=== PATIENT | male | born 1995 | race African-American/Black ===

== ENCOUNTER 2019-11-07 15:08 | Emergency (ER) | payer OTHER ==
[2019-11-07] MEDS ORDERED: NS 0.9% 1000 ML** 1,000 ML IV ONE (17:23)
[2019-11-07] MEDS ORDERED: Metoclopramide IV* 5 MG/ML 2 ML VIAL IV ONE (17:23)
--- NOTE | 2019-11-07 17:25 | ED ---
Complex/Multi-Sys Presentation - HPI Summary HPI Summary: This patient is a 23 year old M presenting to [facility] [place] accompanied by male friend with a chief complaint of nausea/vomiting and fever for the past 4 days. Symptoms aggravated by nothing. Symptoms alleviated by nothing. Patient reports he has not been able to keep anything in his stomach. Pt denies diarrhea, neck pain, abdominal pain, sore throat. Pt reports muscle soreness, congestion, and BERMUDEZ. Pt reports he eats cafeteria food and cooks and does not remember any suspicious food intake. - History Of Current Complaint Chief Complaint: EDFluSymptoms Hx Obtained From: Patient Onset/Duration: Lasting Days - 4, Still Present Timing: Constant Aggravating Factor(s): nothing Alleviating Factor(s): nothing Associated Signs And Symptoms: Positive: Headache, Other - denies neck pain, sore throat; reports muscle soreness, congestion. Negative: Diarrhea, Abdominal Pain - Allergies/Home Medications Allergies/Adverse Reactions: Allergies Allergy/AdvReac Type Severity Reaction Status Date / Time shellfish derived Allergy Swelling Verified 11/07/19 15:16 Of Face,Lips,& Throat Home Medications: Home Medications Acetaminophen TAB* [Tylenol TAB*] 650 mg PO Q4H PRN 11/07/19 [History Confirmed 11/07/19] Albuterol HFA INHALER* [Ventolin HFA Inhaler*] 1 puff INH Q4H PRN 11/07/19 [ History Confirmed 11/07/19] Ondansetron ODT TAB* [Zofran 4 MG Odt TAB*] 4 mg PO Q6H PRN 11/07/19 [History Confirmed 11/07/19] PMH/Surg Hx/FS Hx/Imm Hx Endocrine/Hematology History: Denies: Hx Diabetes Respiratory History: Reports: Hx Asthma - Surgical History Surgery Procedure, Year, and Place: none Infectious Disease History: No Infectious Disease History: Denies: Traveled Outside the [place] in Last 30 Days - Family History Known Family History: Positive: Hypertension, Diabetes - Social History Alcohol Use: Occasionally Hx Substance Use: No Substance Use Type: Reports: None Hx Tobacco Use: No Smoking Status (MU): Never Smoked Tobacco Review of Systems Positive: Fever Positive: Other - congestion. Negative: Sore Throat Positive: Vomiting, Nausea. Negative: Abdominal Pain, Diarrhea Positive: Other - denies neck pain; reports muscle soreness Positive: Headache All Other Systems Reviewed And Are Negative: Yes Physical Exam - Summary Physical Exam Summary: VITAL SIGNS: Reviewed. GENERAL: Patient is a well-developed and nourished MALE who is lying comfortable in the stretcher. Patient is not in any acute respiratory distress. HEAD AND FACE: No signs of trauma. No ecchymosis, hematomas or skull depressions. Nasal congestion, Runny nose, Maxillary sinus tenderness EYES: PERRLA, EOMI x 2, No injected conjunctiva, no nystagmus. EARS: Hearing grossly intact. Ear canals and tympanic membranes are within normal limits. MOUTH: Oropharynx within normal limits. NECK: Supple, trachea is midline, no adenopathy, no JVD, no carotid bruit, no c- spine tenderness, neck with full ROM. CHEST: Symmetric, no tenderness at palpation. LUNGS: Clear to auscultation bilaterally. No wheezing or crackles. CVS: Regular rate and rhythm, S1 and S2 present, no murmurs or gallops appreciated. ABDOMEN: Soft, non-tender. No signs of distention. No rebound, no guarding, and no masses palpated. Bowel sounds are normal. EXTREMITIES: FROM in all major joints, no edema, no cyanosis or clubbing. NEURO: Alert and oriented x 3. No acute neurological deficits. Speech is normal and follows commands. SKIN: Dry and warm. Triage Information Reviewed: Yes Vital Signs On Initial Exam: Initial Vitals Temp Pulse Resp BP Pulse Ox 98.9 F 100 16 126/71 96 11/07/19 15:12 11/07/19 15:12 11/07/19 15:12 11/07/19 15:12 11/07/19 15:12 Vital Signs Reviewed: Yes Procedures - Sedation Patient Received Moderate/Deep Sedation with Procedure: No Diagnostics - Vital Signs Vital Signs Temp Pulse Resp BP Pulse Ox 11/07/19 15:12 98.9 F 100 16 126/71 96 - Laboratory Result Diagrams: 11/07/19 17:41 11/07/19 17:41 Lab Statement: Any lab studies that have been ordered have been reviewed, and results considered in the medical decision making process. - Radiology Chest X-Ray Radiology Interpretation Completed By: Radiologist Summary of Radiographic Findings: Per radiologist,. Questionable mild airspace opacification in the right midlung zone. ED physician has reviewed this imaging report. Complex Multi-Symp Course/Dx Assessment/Plan: This patient is a 23 year old M presenting to [facility] accompanied by male friend with a chief complaint of nausea/vomiting and fever for the past 4 days. Symptoms aggravated by nothing. Symptoms alleviated by nothing. Patient reports he has not been able to keep anything in his stomach. Pt denies diarrhea, neck pain, abdominal pain, sore throat. Pt reports muscle soreness, congestion, and BERMUDEZ. Pt reports he eats in cafeteria food and cooks and does not remember any suspicious food intake. In the physical exam the patient doesnt have any neck pain or meningeal signs. Blood work without any significant abnormality except for CRP of 61.0. Urinalysis is negative for UTI , influenza A and B is negative. Chest x-ray impression: Questionable mild airspace opacification in the right middle. Since the patient is experiencing fevers and cough I believe that the patient would benefit from antibiotics since I believe that the patient has pneumonia. In the ED course the patient was given 1 dose of Rocephin and he will be discharged home with a prescription for azithromycin. Patient was discharged home with follow-up with primary care physician. He was recommended to return to the emergency department should he develop any other symptoms. - Diagnoses Provider Diagnoses: Pneumonia Discharge ED - Sign-Out/Discharge Documenting (check all that apply): Patient Departure - discharge - Discharge Plan Condition: Stable Disposition: HOME Prescriptions: Azithromycin TAB* [Zithromax TAB (Z-HAROLDO) 250 mg #6 tabs] 2 tab PO .TODAY, THEN 1 DAILY #1 haroldo Patient Education Materials: Pneumonia (ED) Referrals: [facility] [Primary Care Provider] - - Billing Disposition and Condition Condition: STABLE Disposition: Home - Attestation Statements Document Initiated by Rossyibe: Yes Documenting Scribe: Maritza Mary Provider For Whom Myrna is Documenting (Include Credential): Dr. Jaleel Siddiqi MD Scribe Attestation: Maritza Tam scribed for Dr. Jaleel Siddiqi MD on 11/08/19 at 1901. Scribe Documentation Reviewed: Yes Provider Attestation: The documentation as recorded by the Maritza parrish accurately reflects the service I personally performed and the decisions made by me, Dr. Jaleel Siddiqi MD Status of Scribe Document: Viewed
[2019-11-07 17:48] LABS: ABS Basophils 0.1 10^3/ul (0-0.2); ABS Eosinophils 0.1 10^3/ul (0-0.6); ABS Lymphocytes 1.4 10^3/ul (1.0-4.8); ABS Monocytes 1.3 10^3/ul (0-0.8); ABS Neutrophils 6.1 10^3/ul (1.5-7.7); Eosinophil % 1.6 %; Hematocrit 42 % (42-52); Hemoglobin 14.5 g/dL (14.0-18.0); Lymphocyte % 15.2 %; Mean Corpuscular HGB Conc 34 g/dL (31-36); Mean Corpuscular Hemoglobin 30 pg (27-31); Mean Corpuscular Volume 87 fL (80-94); Mean Platelet Volume 9.5 fL (7.4-10.4); Nucleated Red Blood Cells % 0.1; Platelet Count 210 10^3/uL (150-450); Red Blood Count 4.87 10^6 /uL (4.18-5.48); Red Cell Distribution Width 13 % (10-15)
[2019-11-07 18:06] LABS: Albumin 4.7 g/dL (3.2-5.2); Albumin/Globulin Ratio 1.3 (1-3); BUN/Creatinine Ratio 8.8 (8-20); C Reactive Protein 61.05 mg/L (<8.01); Calcium 9.8 mg/dL (8.6-10.3); EGFR African American 98.1 (>60); EGFR Non-African American 81.1 (>60); Globulin 3.6 g/dL (2-4); Potassium 3.6 mmol/L (3.5-5.0); Total Bilirubin 0.8 mg/dL (0.2-1.0); Total Protein 8.3 g/dL (6.4-8.9)
[2019-11-07 18:22] LABS: Influenza A Molecular NEGATIVE (Negative); Influenza B Molecular NEGATIVE (Negative)
[2019-11-07 18:26] LABS: Urine Appearance Clear; Urine Bilirubin Negative (Negative); Urine Blood 2+ (Negative); Urine Color Yellow; Urine Glucose Negative (Negative); Urine Ketones Negative (Negative); Urine Nitrite Negative (Negative); Urine Protein Negative (Negative); Urine Urobilinogen Negative (Negative)
[2019-11-07 18:28] LABS: Urine Bacteria Absent (Absent); Urine Red Blood Cell 1+(3-5/hpf) (Absent); Urine White Blood Cell Absent (Absent)
[2019-11-07] MEDS ORDERED: cefTRIAXone(*) 1 GM in NS 0.9% 50 ML* 50 ML IVPB ONE (18:36)
[2019-11-07 18:45] LABS: Rapid Strep Molecular Negative (Negative)
[2019-11-07 19:42] VITALS: BP 130/78
== END 2019-11-07 20:22 | disposition home or self-care (01) ==
LOC: ED 15:08
DX: J18.9 Pneumonia, unspecified organism (principal); J45.909 Unspecified asthma, uncomplicated
CPT/HCPCS: 36415; 71045; 80053; 81003; 81015; 83605; 85025; 86140; 87040; 87651; 96361; 96365; 96375; 99283; J0696; J2765

== ENCOUNTER 2020-01-18 21:26 | Emergency (ER) | payer OTHER ==
[2020-01-18 21:31] VITALS: BP 135/75
--- NOTE | 2020-01-18 22:31 | ED ---
Lower Extremity - HPI Summary HPI Summary: 24-year-old male presents with right knee pain. He states he bumped his knee a week ago when he was drunk. has been having increasing pain as he walks. Denies any numbness tingling. He states he has injured the knee before. No previous surgeries to the knee. Denies any popping or locking. Has no medical conditions. - History of Current Complaint Chief Complaint: EDExtremityLower Stated Complaint: RT KNEE INJURY PER PT Time Seen by Provider: 01/18/20 21:39 Pain Intensity: 7 - Allergies/Home Medications Allergies/Adverse Reactions: Allergies Allergy/AdvReac Type Severity Reaction Status Date / Time shellfish derived Allergy Swelling Verified 01/18/20 21:30 Of Face,Lips,& Throat PMH/Surg Hx/FS Hx/Imm Hx Endocrine/Hematology History: Denies: Hx Diabetes Respiratory History: Reports: Hx Asthma - Surgical History Surgery Procedure, Year, and Place: none - Immunization History Immunizations Up to Date: Yes Infectious Disease History: No Infectious Disease History: Denies: Traveled Outside the [place] in Last 30 Days - Family History Known Family History: Positive: Hypertension, Diabetes - Social History Alcohol Use: Occasionally Hx Substance Use: No Substance Use Type: Reports: None Hx Tobacco Use: No Smoking Status (MU): Never Smoked Tobacco Review of Systems Negative: Fever Negative: Chest Pain Negative: Shortness Of Breath Positive: Myalgia - right knee pain All Other Systems Reviewed And Are Negative: Yes Physical Exam Triage Information Reviewed: Yes Vital Signs On Initial Exam: Initial Vitals Temp Pulse Resp BP Pulse Ox 97.9 F 84 15 135/75 96 01/18/20 21:29 01/18/20 21:29 01/18/20 21:29 01/18/20 21:29 01/18/20 21:29 Vital Signs Reviewed: Yes Appearance: Positive: Well-Appearing Skin: Positive: Warm, Dry Head/Face: Positive: Normal Head/Face Inspection Eyes: Positive: Normal, Conjunctiva Clear ENT: Positive: Pharynx normal Respiratory/Lung Sounds: Positive: Clear to Auscultation, Breath Sounds Present Cardiovascular: Positive: Normal, RRR Musculoskeletal: Positive: Strength/ROM Intact - right knee pain, Other - good pulses, tenderness below right knee Neurological: Positive: Normal Psychiatric: Positive: Normal Procedures - Sedation Patient Received Moderate/Deep Sedation with Procedure: No Diagnostics - Vital Signs Vital Signs Temp Pulse Resp BP Pulse Ox 01/18/20 21:29 97.9 F 84 15 135/75 96 - Laboratory Lab Statement: Any lab studies that have been ordered have been reviewed, and results considered in the medical decision making process. - Radiology knee Radiology Interpretation Completed By: ED Physician Summary of Radiographic Findings: no fracture Lower Extremity Course/Dx - Course Course Of Treatment: 24-year-old male presents with right knee pain. He states he bumped his knee a week ago when he was drunk. has been having increasing pain as he walks. Denies any numbness tingling. He states he has injured the knee before. No previous surgeries to the knee. Denies any popping or locking. Has no medical conditions. On exam tenderness lower right knee. Neurovascular intact. X-ray shows no fracture. told treat conservatively. Told follow up with orthopedic. Patient understands and agrees the plan. - Diagnoses Differential Diagnosis/HQI/PQRI: Positive: Fracture (Closed), Sprain, Strain Provider Diagnoses: Right knee pain Discharge ED - Sign-Out/Discharge Documenting (check all that apply): Patient Departure - Discharge Plan Condition: Good Disposition: HOME Patient Education Materials: Knee Pain (ED) Referrals: [facility] [Primary Care Provider] - Ariel Head MD [Medical Doctor] - Additional Instructions: Stay off knee as much as possible Ice, elevate, Ibuprofen or Tylenol every 6 hours for pain Follow up with ortho if no improvement Return to ED if develop or any new or worsening symptoms - Billing Disposition and Condition Condition: GOOD Disposition: Home
== END 2020-01-18 22:43 | disposition home or self-care (01) ==
LOC: ED 21:26
DX: M25.561 Pain in right knee (principal); J45.909 Unspecified asthma, uncomplicated; Z91.013 Allergy to seafood
CPT/HCPCS: 99282